=== PATIENT | male | born 1990 | race Two or more races ===

== ENCOUNTER → 2017-01-06 13:05 | Outpatient (CLI) | payer BC ==
[2017-01-06 14:20] LABS: BASOPHILS 0.1 % (0-2); EOSINOPHILS 1.5 % (0-7); HEMATOCRIT 46.5 % (42.0-54.0); HEMOGLOBIN 15.8 g/dL (13.5-17.5); IMMATURE GRANULOCYTES 0.1 % (0-5); LYMPHOCYTES 14.4 % (15-50); MCH 29.6 pg (26.0-34.0); MCV 87.2 fL (80.0-100.0); MEAN PLATELET VOLUME 10.7 fL (7.4-10.4); MONOCYTES 7.1 % (2-11); NEUTROPHILS 76.8 % (40-80); PLATELET COUNT 208 10x3/uL (130-400); RBC 5.33 10x6/uL (4.20-6.10); RDW 12.7 % (11.5-14.5); WBC 9.3 10x3/uL (4.8-10.8)
[2017-01-06 14:36] LABS: % SATURATION 8 % (15-55); IRON 36 ug/dl (35-150); TOTAL IRON BIND CAPACITY 411 ug/dl (260-445); UNSAT IRON BIND CAPACITY 375 ug/dl (150-375)
[2017-01-06 15:24] LABS: ALBUMIN 4.1 g/dL (3.4-5.0); ALKALINE PHOSPHATASE 357 U/L (46-116); ALT (SGPT) 158 U/L (10-68); BILIRUBIN - DIRECT 0.37 mg/dL (0.00-0.30); BILIRUBIN - TOTAL 1.09 mg/dL (0.2-1.3); CALCIUM 8.8 mg/dL (8.5-10.1); CARBON DIOXIDE 27.5 mmol/L (21.0-32.0); CHLORIDE - SERUM 95 mmol/L (98-107); CHOL - HDL RATIO 2.5 ratio (2.3-4.9); CHOLESTEROL, TOTAL 220 mg/dL (0-200); CREATININE - SERUM 0.8 mg/dL (0.6-1.3); FERRITIN 225 ng/mL (3-244); GLUCOSE 93 mg/dL (74-106); HDL CHOLESTEROL 87 mg/dL (32-96); LDL CHOLESTEROL 119 mg/dL (0-100); LDL-HDL RATIO 1.4 ratio (1.5-3.5); POTASSIUM - SERUM 3.1 mmol/L (3.5-5.1); PROTEIN - SERUM 7.7 g/dL (6.4-8.2); TRIGLYCERIDE 71 mg/dL (30-200); UREA NITROGEN 8 mg/dL (7-18); eGFR NON AFRICAN AMERICAN > 90 mL/min (90-120)
[2017-01-06 15:30] LABS: CALC OSMOLALITY 235 mosm/kg (275-300); GAMMA GT 900 U/L (5-85)
[2017-01-06 15:33] LABS: INR 0.99 (0.85-1.17); PROTIME 12.9 SECONDS (11.6-15.0)
[2017-01-06 15:37] LABS: SODIUM 118 mmol/L (136-145)
== END | disposition home or self-care (01) ==
LOC: D.LAB 13:05
PROVIDERS: Internal Medicine Gastroenterology
DX: R10.11 Right upper quadrant pain (principal); R74.8 Abnormal levels of other serum enzymes

== ENCOUNTER → 2017-01-13 07:14 | Outpatient (CLI) | payer BC ==
[2017-01-13 07:30] LABS: CALC OSMOLALITY 277 mosm/kg (275-300); CARBON DIOXIDE 28.4 mmol/L (21.0-32.0); CHLORIDE - SERUM 105 mmol/L (98-107); CREATININE - SERUM 0.8 mg/dL (0.6-1.3); GLUCOSE 101 mg/dL (74-106); POTASSIUM - SERUM 3.9 mmol/L (3.5-5.1); SODIUM 140 mmol/L (136-145); UREA NITROGEN 10 mg/dL (7-18); eGFR NON AFRICAN AMERICAN > 90 mL/min (90-120)
== END | disposition home or self-care (01) ==
LOC: D.LAB 07:04
PROVIDERS: Internal Medicine Gastroenterology
DX: E87.1 Hypo-osmolality and hyponatremia (principal)

== ENCOUNTER 2017-01-28 05:24 | Outpatient (CLI) | payer BC ==
[~2017-01-28] VITALS: Ht 167.6 cm; Wt 85.9 kg
[2017-01-28] MEDS ORDERED: OMEPRAZOLE40 MG PO (06:14)
[2017-01-28 06:20] LABS: BASOPHILS 0.3 % (0-2); EOSINOPHILS 4.1 % (0-7); HEMATOCRIT 39.8 % (42.0-54.0); HEMOGLOBIN 13.1 g/dL (13.5-17.5); IMMATURE GRANULOCYTES 0.2 % (0-5); MCH 28.7 pg (26.0-34.0); MCHC 32.9 g/dL (31.0-37.0); MCV 87.1 fL (80.0-100.0); MEAN PLATELET VOLUME 10.5 fL (7.4-10.4); MONOCYTES 5.7 % (2-11); NEUTROPHILS 50.7 % (40-80); PLATELET COUNT 234 10x3/uL (130-400); RBC 4.57 10x6/uL (4.20-6.10); RDW 12.7 % (11.5-14.5); WBC 6.3 10x3/uL (4.8-10.8)
[2017-01-28 06:24] VITALS: BP 103/61; Ht 167.6 cm; Wt 85.9 kg
[2017-01-28 06:40] LABS: INR 0.97 (0.85-1.17); PROTIME 12.7 SECONDS (11.6-15.0)
[2017-01-28 06:41] LABS: APTT 31.8 SECONDS (22.8-39.4)
[2017-01-28 06:42] LABS: ALBUMIN 3.5 g/dL (3.4-5.0); ALKALINE PHOSPHATASE 355 U/L (46-116); AMYLASE - SERUM 32 U/L (25-115); BILIRUBIN - DIRECT 0.15 mg/dL (0.00-0.30); BILIRUBIN - INDIRECT 0.38 mg/dL (0.00-1.00); BILIRUBIN - TOTAL 0.53 mg/dL (0.2-1.3); CALC OSMOLALITY 279 mosm/kg (275-300); CALCIUM 8.5 mg/dL (8.5-10.1); CHLORIDE - SERUM 107 mmol/L (98-107); CREATININE - SERUM 0.8 mg/dL (0.6-1.3); GLUCOSE 101 mg/dL (74-106); LIPASE 101 U/L (73-393); POTASSIUM - SERUM 3.6 mmol/L (3.5-5.1); PROTEIN - SERUM 6.9 g/dL (6.4-8.2); SODIUM 141 mmol/L (136-145); UREA NITROGEN 11 mg/dL (7-18); eGFR NON AFRICAN AMERICAN > 90 mL/min (90-120)
[2017-01-28 06:55] LABS: ALT (SGPT) 153 U/L (10-68)
--- NOTE | 2017-01-28 11:09 | NUR ---
0910--ALL VITAL SIGNS CHARTED ON POST PROCEDURE VITAL SIGN SHEET ON CHART. ARTHUR SANTIAGO
== END 2017-01-28 13:50 | disposition home or self-care (01) ==
LOC: D.OPS 05:24 → D.CT 08:00 → D.OPS 13:50
PROVIDERS: Radiology Diagnostic Radiology
DX: R79.89 Other specified abnormal findings of blood chemistry (principal); R10.11 Right upper quadrant pain; Z01.812 Encounter for preprocedural laboratory examination